=== PATIENT | female | born 1985 | race Caucasian/White ===

== ENCOUNTER 2018-10-24 16:13 | Emergency (ER) | payer SELFPAY ==
[~2018-10-24] VITALS: Ht 157.5 cm; Wt 87.3 kg
[~2018-10-24 16:13] MED LIST: PREN1TAB49 PO
[2018-10-24 16:19] VITALS: BP 148/90; PULSE 96; RESP 18; Ht 157.5 cm; Wt 87.3 kg
--- NOTE | 2018-10-24 17:15 | ERD ---
ER Documentation Chief Complaint Chief Complaint feeling anxious , headache HPI 33-year-old female previously healthy, presents to the emergency department complaining of sudden onset of dizziness, worsening of anxiety during the last 4 weeks. The patient states that she has been under a lot of stress and persistent worrying about health and family. She has had similar episodes in the past but less intense. She is not taking any medication at this time. History provided by patient. ROS All systems reviewed and are negative except as per history of present illness. Medications Home Meds Active Scripts Zxlybdezomabh-Lcamshsqmt-Tknnldmm-Codeine* (Fioricet w/Codeine*) [id number] Cap, 1 CAP PO TID PRN for PAIN LEVEL 1-5, #10 CAP Prov:GRAHAM HIGHTOWER MD 10/24/18 Hydroxyzine Hcl* (Hydroxyzine Hcl*) 50 Mg Tablet, 50 MG PO QHS PRN for ANXIETY, #10 TAB Prov:GRAHAM HIGHTOWER MD 10/24/18 Lorazepam* (Ativan*) 0.5 Mg Tablet, 0.5 MG PO Q8H PRN for ANXIETY, #10 TAB Prov:GRAHAM HIGHTOWER MD 10/24/18 Reported Medications Vits W-Ca,Fe,Fa(<1MG) () 1 Tab Tablet, 1 TAB PO DAILY 08/13/11 Allergies Allergies: Coded Allergies: No Known Allergy (Unverified , 08/04/11) PMhx/Soc Medical and Surgical Hx: pt denies Medical Hx, pt denies Surgical Hx Hx Alcohol Use: No Hx Substance Use: No Hx Tobacco Use: No Smoking Status: Never smoker FmHx Family History: No diabetes, No coronary disease Physical Exam Vitals Vital Signs Date Temp Pulse Resp B/P (MAP) Pulse Ox O2 O2 Flow FiO2 Time Delivery Rate 10/24/18 98.0 96 18 148/90 99 16:19 (109) Physical Exam Const: No acute distress Head: Atraumatic Eyes: Normal Conjunctiva ENT: Normal External Ears, Nose and Mouth. Neck: Full range of motion. No meningismus. Resp: Clear to auscultation bilaterally Cardio: Regular rate and rhythm, no murmurs Abd: Soft, non tender, non distended. Normal bowel sounds Skin: No petechiae or rashes Back: No midline or flank tenderness Ext: No cyanosis, or edema Neur: Awake and alert Psych: Normal Mood and Affect Procedures/MDM Patient presents complaining of one episode today of chest pain, palpitations, shortness of breath and perioral paresthesias. Vital signs stable, Physical exam unremarkable, neurovascular exam intact. Differential diagnosis include but not limited to: Depression, anxiety, migraine, thyroid disease, electrolyte imbalance. Low suspicion for acute coronary event, aortic dissection, CVA. Physical examination and clinical presentation consistent most likely with anxiety. During the ED course the patient remained stable, no new complaints. Treatment options and clinical impression discussed with patient who agrees with management. The patient is stable to be treated outpatient and will be discharged home with a Rx for lorazepam, some side effects of prescribed medicat ions (headache, rash, nausea, vomiting, diarrhea, drowsiness, habituation, bleeding, hypertension, interactions with other medications) were reviewed. The patient was instructed to follow up with the primary care provider in the next 48h. If symptoms persist, worsen or new symptoms develop, then patient should return to the ED immediately. Instructions explained and given directly by me to the patient with acknowledgment and demonstrated understanding. Disclaimer: Inadvertent spelling and grammatical errors are likely due to EHR/dictation software use and do not reflect on the overall quality of patient care. Also, please note that the electronic time recorded on this note does not necessarily reflect the actual time of the patient encounter. Departure Diagnosis: Primary Impression: Anxiety Additional Impression: Migraine headache Condition: Stable Patient Instructions: Your Body's Response to Anxiety Additional Instructions: Thank you very much for allowing us to participate in your care. Your health and safety is our top priority at [facility]. Call your primary care doctor TOMORROW for an appointment during the next 2-4 days and bring all the information provided. Have prescriptions filled and follow precisely the directions on the label. If the symptoms get worse and your provider is unavailable, return to the Emergency Department immediately. GRAHAM HIGHTOWER MD October 24, 2018 17:15
[2018-10-24] MEDS ORDERED: LORA-441 PO (17:26)
[2018-10-24] MEDS ORDERED: HYDR50TA15 PO (17:26)
[2018-10-24] MEDS ORDERED: ABCC1C PO (17:27)
== END 2018-10-24 17:39 | disposition home or self-care (01) ==
LOC: FTE 16:13
DX: F41.9 Anxiety disorder, unspecified (principal); G43.909 Migraine, unspecified, not intractable, without status migrainosus
CPT/HCPCS: 99283